=== PATIENT | female | born 1955 | race Two or more races ===

== ENCOUNTER 2017-10-24 09:49 | Outpatient (CLI) | payer OTHER | END 2017-10-24 09:54 | disposition home or self-care (01) | LOC: LAB 09:49 | DX: J96.10 Chronic respiratory failure, unspecified whether with hypoxia or hypercapnia (principal); R09.02 Hypoxemia ==

== ENCOUNTER 2018-11-27 11:35 | Outpatient (CLI) | payer OTHER | END 2018-11-27 11:51 | disposition home or self-care (01) | LOC: LAB 11:35 → T RESPIRAT 11:35 → LAB 11:51 | DX: J96.12 Chronic respiratory failure with hypercapnia (principal); G47.33 Obstructive sleep apnea (adult) (pediatric) ==

== ENCOUNTER 2020-01-11 11:50 | Inpatient (IN) | payer OTHER ==
[~2020-01-11] VITALS: Ht 165.1 cm; Wt 90.7 kg
[2020-01-11] MEDS ORDERED: ATORVASTATIN CA40 MG (12:04)
[2020-01-11] MEDS ORDERED: TIROSINT75 MCG (12:04)
[2020-01-11] MEDS ORDERED: CENTRUM SILVER1 EAC2 (12:04)
[2020-01-11] MEDS ORDERED: LASIX40 MG (12:04)
[2020-01-11] MEDS ORDERED: LOSARTAN POTAS100 MG (12:05)
[2020-01-11] MEDS ORDERED: ECOTRIN81 MG (12:05)
[2020-01-11] MEDS ORDERED: DIALYVITE 3,001 EACH (12:05)
[2020-01-11] MEDS ORDERED: APRESOLINE 10MG10 MG (12:06)
[2020-01-11] MEDS ORDERED: CARVEDILOL12.5 MG (12:06)
[2020-01-11] MEDS ORDERED: ISOSORBIDE MONO30 M2 (12:06)
[2020-01-11] MEDS ORDERED: HUMALOG MI100 UNIT/2 (12:07)
[2020-01-11] MEDS ORDERED: GRALISE600 MG (12:07)
== END 2020-01-28 14:59 | disposition home or self-care (01) | DRG 811 ==
LOC: ER 11:50 → MEDI 15:44 → MEDJ 15:44
PROVIDERS: ADMIT Specialist; ATTEND Specialist
PROC: 30233N1 Transfusion of Nonautologous Red Blood Cells into Peripheral Vein, Percutaneous Approach (ICD-10-PCS; principal; 2020-01-11)
PROC: 4A12X4Z Monitoring of Cardiac Electrical Activity, External Approach (ICD-10-PCS; 2020-01-11)
PROC: B24BZZZ Ultrasonography of Heart with Aorta (ICD-10-PCS; 2020-01-12)
PROC: 5A09557 Assistance with Respiratory Ventilation, Greater than 96 Consecutive Hours, Continuous Positive Airway Pressure (ICD-10-PCS; 2020-01-12)
PROC: 05HM33Z Insertion of Infusion Device into Right Internal Jugular Vein, Percutaneous Approach (ICD-10-PCS; 2020-01-14)
PROC: B513ZZA Fluoroscopy of Right Jugular Veins, Guidance (ICD-10-PCS; 2020-01-14)
PROC: 5A1D70Z Performance of Urinary Filtration, Intermittent, Less than 6 Hours Per Day (ICD-10-PCS; 2020-01-15)
PROC: BW40ZZZ Ultrasonography of Abdomen (ICD-10-PCS; 2020-01-21)
PROC: CF2YYZZ Tomographic (Tomo) Nuclear Medicine Imaging of Hepatobiliary System and Pancreas using Other Radionuclide (ICD-10-PCS; 2020-01-21)
PROC: B54PZZZ Ultrasonography of Bilateral Upper Extremity Veins (ICD-10-PCS; 2020-01-27)
DX: D50.8 Other iron deficiency anemias (principal); N18.6 End stage renal disease; I50.23 Acute on chronic systolic (congestive) heart failure; N17.8 Other acute kidney failure; E87.2 Acidosis; N39.0 Urinary tract infection, site not specified; I13.2 Hypertensive heart and chronic kidney disease with heart failure and with stage 5 chronic kidney disease, or end stage renal disease; E03.9 Hypothyroidism, unspecified; E66.01 Morbid (severe) obesity due to excess calories; E87.5 Hyperkalemia; Z89.512 Acquired absence of left leg below knee; Z79.899 Other long term (current) drug therapy; G47.33 Obstructive sleep apnea (adult) (pediatric); D63.1 Anemia in chronic kidney disease; Z99.2 Dependence on renal dialysis; Z20.828 Contact with and (suspected) exposure to other viral communicable diseases; Z79.4 Long term (current) use of insulin; Z87.891 Personal history of nicotine dependence